=== PATIENT | male | born 1990 | race Caucasian/White ===

== ENCOUNTER 2016-11-09 08:14 | Observation (INO) ==
[2016-11-09] MEDS ORDERED: ATIVAN IV ONE (09:39)
[2016-11-09] MEDS ORDERED: NS 1,000 ML IV ONE (09:39)
[2016-11-09 10:15] LABS: MANUAL DIFF NEEDED? NO
[2016-11-09 10:18] LABS: BASO% 0.5 % (0.0-0.8); EOS# 0.36 X1000 (0.0-0.7); EOS% 3.7 % (0.0-10.0); HEMATOCRIT 45.9 % (42.0-52.0); HEMOGLOBIN 16.3 g/dL (14.0-18.0); IMM GRAN# 0.03 X1000 (0.0-0.04); IMM GRAN% 0.3 % (0.0-0.5); LYMPH# 2.72 X1000 (1.2-3.4); LYMPH% 27.7 % (20.5-51.1); MCH 30.4 PG (27-31); MCHC 35.5 g/dL (33-37); MCV 85.6 FL (81-99); MONO# 0.58 X1000 (0.11-0.59); MONO% 5.9 % (1.7-9.3); MPV 10.4 FL (7.4-10.4); NEUT% 61.9 % (42.2-75.2); PLT 287 X1000 (130-400); RBC 5.36 XMIL (4.7-6.1)
[2016-11-09 10:38] LABS: AGAP 9; ALBUMIN 4.3 g/dL (3.5-5.0); ALKALINE PHOSPHATASE 70 U/L (32-122); BUN 12 mg/dL (8-22); CALCIUM 9.5 mg/dL (8.8-10.2); CHLORIDE 101 mmol/L (98-107); CK PROFILE 160 U/L (24-204); COSMO 272; GOT 20 U/L (10-34); GPT 22 U/L (10-44); POTASSIUM 4.1 mmol/L (3.5-5.1); SODIUM 136 mmol/L (136-145); TCO2 27 mmol/L (25-35); TOTAL PROTEIN 7.8 g/dL (6.3-8.3)
[2016-11-09 13:14] LABS: URINE CULTURE PL NEEDED? NO
[2016-11-09 13:20] LABS: BILIRUBIN URINE NEGATIVE (NEGATIVE); BLOOD URINE NEGATIVE (NEGATIVE); CLARITY CLEAR (CLEAR); COLOR YELLOW; GLUCOSE URINE NEGATIVE (NEGATIVE); LEUKOCYTES URINE NEGATIVE (NEGATIVE); NITRITE URINE NEGATIVE (NEGATIVE); PH URINE 6.5; PROTEIN URINE NEGATIVE (NEGATIVE); UROBILINOGEN URINE NORMAL
[2016-11-09 13:23] LABS: UR AMPHETAMINES QUAL NONE DETECTED (NONE DETECT); UR BARBITUATES QUAL NONE DETECTED (NONE DETECT); UR BENZODIAZEPIN QUAL NONE DETECTED (NONE DETECT); UR CANNABINOIDS QUAL PRESUMPTIVE POSITIVE (NONE DETECT); UR COCAINE QUAL NONE DETECTED (NONE DETECT); UR MDMA QUAL NONE DETECTED (NONE DETECT); UR METHADONE QUAL NONE DETECTED (NONE DETECT); UR METHAMPHETAMINE QUAL NONE DETECTED (NONE DETECT); UR OPIATES QUAL NONE DETECTED (NONE DETECT); UR OXYCODONE QUAL NONE DETECTED (NONE DETECT); UR PCP QUAL NONE DETECTED (NONE DETECT); UR TCA QUAL NONE DETECTED (NONE DETECT)
[2016-11-09 13:36] LABS: URINE CAST NONE SEEN /LPF; URINE CRYSTAL NONE SEEN /HPF; URINE EPITHELIAL CELLS <10 /HPF (<10); URINE RBC <10 /HPF (<10); URINE SOURCE CLEAN CATCH; URINE WBC <10 /HPF (<10)
[2016-11-09 14:38] VITALS: BP 139/74
== END 2016-11-09 19:38 | disposition home or self-care (01) ==
LOC: P.ED 08:14 → INTOOBSV 08:15 → P.MEDSURG 12:50
PROVIDERS: ATTEND Family Medicine